=== PATIENT | male | born 1975 | race Caucasian/White ===

== ENCOUNTER 2020-07-08 09:48 | Emergency (ER) | payer SELFPAY ==
[~2020-07-08] VITALS: Ht 185.4 cm; Wt 65.8 kg
[2020-07-08] MEDS ORDERED: ACETAMINOPHEN/CODEINE#3 (300/30mg) TAB PO ONE (12:30)
[2020-07-08 14:39] VITALS: BP 122/84
== END 2020-07-08 14:42 | disposition home or self-care (01) ==
LOC: ER 09:48
DX: S02.40EA Zygomatic fracture, right side, initial encounter for closed fracture (principal); H92.02 Otalgia, left ear; X58.XXXA Exposure to other specified factors, initial encounter; Y93.89 Activity, other specified; Y92.89 Other specified places as the place of occurrence of the external cause; Y99.8 Other external cause status
CPT/HCPCS: 70486